=== PATIENT | female | born 1985 | race Two or more races ===

== ENCOUNTER 2024-09-10 05:50 | Day surgery (SDC) | payer MEDICAID, SELFPAY ==
[2024-09-05 11:52] VITALS: BMI 32.2
[2024-09-05 12:35] LABS: Basophils % (Auto) 1 % (0-2.5); Eosinophils # (Auto) 0.3 Thou/mm3 (0.0-0.5); Eosinophils % (Auto) 4 % (0-10); Hematocrit 40.6 % (36.0-46.0); Hemoglobin 13.6 g/dL (12.0-16.0); Immature Granulocytes % (Auto) 0 % (0-0); Immature Granulocytes Auto 0.02 Thou/mm3 (0.00-0.00); Lymphocytes # (Auto) 2.7 Thou/mm3 (1.0-4.8); Lymphocytes % (Auto) 41 % (10-50); Mean Corpuscular HGB Conc 33.5 g/dl (31.0-37.0); Mean Corpuscular Volume 87 fL (80-100); Monocytes # (Auto) 0.4 Thou/mm3 (0.0-0.8); Monocytes % (Auto) 6 % (0-12); Neutrophils # (Auto) 3.1 Thou/mm3 (1.8-7.7); Neutrophils % (Auto) 47 % (37-80); Nucleated Red Blood Cell % 0 /100 WBC (0); Platelet Count 247 Thou/mm3 (140-440); RDW Standard Deviation 40.9 fL (36.4-46.3); Red Blood Count 4.69 Miln/mm3 (4.00-5.20); White Blood Count 6.5 Thou/mm3 (3.6-11.0)
[2024-09-05 12:48] LABS: HCG,Qualitative Serum Negative
[2024-09-05 13:37] LABS: Hepatitis A Antibody IgM Non Reactive (Non React); Hepatitis B Core Antibody IgM Non Reactive (Non React); Hepatitis B Surface Antigen Non Reactive (Non React); Hepatitis C Antibody Non Reactive (Non React)
[2024-09-05 17:12] LABS: HIV (1&2) Antibody Rapid Non-Reactive
[2024-09-10] VITALS (7 sets, daily range): BP systolic 116–138; BP diastolic 64–96; PULSE 62–93; RESP 15–20; TEMP 36.7–37; O2SAT 95–98; BMI 33.5
[2024-09-10] MEDS: RINGERS LACTATED 1000 ML 1,000 ML 20 ML IV (06:34)
--- NOTE | 2024-09-10 08:32 | SUR.PHASEI ---
0832 Patient arrived to recovery sitting up in [facility], on oxygen 8L via oxy mask, breathing unlabored with an occasional cough, vital signs stable, denies pain, dressing intact to lower abdomen; dermabond, lung sounds clear upon auscultation, bilateral radial pulses present when palpated, report received from Soledad CARBALLO/ Suraj CARBALLO and Dr. Hebert
--- NOTE | 2024-09-10 08:41 | PD.GYNPROC ---
Operative Note - TELECOMMUNICATIONS CLERK Procedure Date of procedure: 09/10/24 Procedure Performed: Laparoscopic bilateral salpingectomy Indication: Desires sterilization Pre-Op diagnosis: Denies sterilization Aware of irreversibility, was counseled about LARCs, knows the risk and benefits Anesthesia type: General Procedure description: Patient was taken to the operating room. General anesthesia was given without any complications.? A time out was given confirming Constance Sol was undergoing the following, procedure,allergies, and surgeon.The patient was positioned in the dorsal lithotomy position. The bladder was emptied. The perineum was prepped with Betadine solution per routine.The abdomen was prepped with DuraPrep. Attention was then focused to the vagina.? A sponge placed in a ring forceps was placed in the posterior fornix and used as a uterine manipulator.? The surgeon then changed gloves to continue proper sterile technique. Attention was diverted to the abdomen. An umblical incision was first made, Two towel clips were placed lateral to the umbilicus in order to elevate the abdominal wall.? A hemostat was used to assess the depth to the fascia. While applying countertraction by lifting the towel clips, a Veress needle was used to enter the peritoneal cavity, a initial abdominal pressure of 12 mmHg was noted upon entry. Veress needle used for initial pneumoperitoneum establishment. 5 mm port used for the direct trocar entry the abdomen was then insufflated with CO2 gas to 15mmHg, under the opti-view system was advanced into the peritoneal entry.? The Right lower quadrant was evaluated and a 5-mm incision was made . 5-mm trocar placed under camera surveillance.? Left side evaluated and a 5mm trocar inserted under optiview surveillance. On observation: Normal anatomy with bilateral ovaries and tubes no peritoneal pathology identified. Using a laparoscopic [place] grasper, gently right tube at the fimbrial end was picked up. Gradually , her right and left tube was from the mesosalpinx using Enseal device. Same repeated on the other side bilateral salpingectomy done, hemostasis ensured. All the bowel at the initial trocar entry point was examined no entry injuries were noted Estimated blood loss (ml): 1 Surgical staff Operation Date: 09/10/24 07:30 Case Staff Anesthesiologist: Madi Hebert RN First Assistant: Rachel Rhoades Diagnosis Problem List Completed Was Problem List Reviewed/Reconciled?: Yes
--- NOTE | 2024-09-10 09:25 | SUR.PHASEII ---
0925 Patient meets discharge criteria from recovery, awake and alert, breathing unlabored, vital signs stable, denies pain, dressing intact; no bleeding noted, drinking 7up; tolerating well, patient able to dress herself into her clothing, discharge instructions given to patient and patients brother with teach-back approach, both receptive, brother signed discharge instructions. Patient given all her belongings prior to discharge, transported via wheelchair and left in a private vehicle.
== END 2024-09-10 09:25 | disposition home or self-care (01) ==
PROVIDERS: PCP Family Medicine; Referring Provider Student in an Organized Health Care Education/Training Program; Visit Provider Student in an Organized Health Care Education/Training Program
PROC: (CPT 58670; principal; 2024-09-10 07:30)
DX: Z30.2 Encounter for sterilization (principal)
CPT/HCPCS: 58661; 36415; 80074; 84703; 85025; 86703; 86850; 86900; 86901; A4217; A4649; J1100; J1885; J2250; J2405; J2704; J3010; J3490; J7120; A9270